=== PATIENT | female | born 2005 | race African-American/Black ===

== ENCOUNTER 2025-03-12 14:24 | Emergency (ER) | payer OTHER, MEDICAID ==
[~2025-03-12] VITALS: Ht 170.2 cm; Wt 80.0 kg
[2025-03-12 15:00] VITALS: O2SAT 99
[2025-03-12] MEDS: ACETAMINOPHEN 325MG TABLET PO ONE (18:50)
[2025-03-12] MEDS: KETOROLAC 15MG/ML VIAL IM ONE (18:50)
[2025-03-12] MEDS ORDERED: LIDO700A30 TP (20:34)
[2025-03-12 20:57] VITALS: BP 125/70; PULSE 62; RESP 14; TEMP 36.8; O2SAT 100
== END 2025-03-12 20:59 | disposition home or self-care (01) ==
LOC: ER 14:24
DX: M25.551 Pain in right hip (principal); J45.909 Unspecified asthma, uncomplicated
CPT/HCPCS: 81025; 73502; 72192; 96372; 99285; J1885; Z7610